=== PATIENT | male | born 1990 | race Caucasian/White ===

== ENCOUNTER 2025-09-09 20:25 | Emergency (ER) | payer BC ==
[~2025-09-09] VITALS: Ht 165.1 cm; Wt 78.0 kg
[2025-09-09] MEDS ORDERED: FEXO1TAB8 PO (20:54)
[2025-09-09] MEDS ORDERED: AMOX-430 PO (20:54)
[2025-09-09] MEDS ORDERED: IBUP-1490 PO (20:54)
[2025-09-09 21:04] VITALS: BP 133/72; TEMP 98.4; O2SAT 96
[2025-09-10] MEDS ORDERED: CIPR7.5D9 LEFT EAR (04:04)
== END 2025-09-09 21:04 | disposition home or self-care (01) ==
LOC: ER 20:34
DX: H66.92 Otitis media, unspecified, left ear (principal); J45.909 Unspecified asthma, uncomplicated

== ENCOUNTER 2025-09-10 03:37 | Emergency (ER) | payer OTHER, BC ==
[~2025-09-10] VITALS: Ht 165.1 cm; Wt 78.0 kg
[~2025-09-10 03:37] MED LIST: AMOX-430 PO; FEXO1TAB8 PO; IBUP-1490 PO
[2025-09-10 03:56] VITALS: BP 136/86; TEMP 98.3; O2SAT 97
[2025-09-10] MEDS ORDERED: CIPR7.5D9 LEFT EAR (04:04)
[2025-09-10] MEDS ORDERED: KETOROLAC TROMETHAMINE INJ 30 MG/ML VIAL ONE (04:08)
[2025-09-10] MEDS: KETOROLAC TROMETHAMINE INJ 30 MG/ML VIAL IM ONE (04:10)
== END 2025-09-10 04:18 | disposition home or self-care (01) ==
LOC: ER 03:44
DX: H66.92 Otitis media, unspecified, left ear (principal); J45.909 Unspecified asthma, uncomplicated
CPT/HCPCS: 99283; 96372; J1885; J8540